=== PATIENT | male | born 1990 | race Hispanic/Latino ===

== ENCOUNTER 2023-01-12 05:14 | Emergency (ER) | payer BC ==
[~2023-01-12] VITALS: Ht 172.7 cm; Wt 101.2 kg
[2023-01-12] MEDS ORDERED: NASACORT16.9 ML (06:07)
[2023-01-12 06:42] VITALS: BP 130/85
== END 2023-01-12 06:42 | disposition home or self-care (01) ==
LOC: FSED 05:37 → EDBD 05:37 → FSED 06:42
DX: U07.1 COVID-19 (principal); G62.9 Polyneuropathy, unspecified; J30.9 Allergic rhinitis, unspecified; F41.8 Other specified anxiety disorders
CPT/HCPCS: 80053; 82553; 84484; 85025; 93005; 99283

== ENCOUNTER 2024-08-31 21:46 | Emergency (ER) | payer SELFPAY ==
[~2024-08-31] VITALS: Ht 172.7 cm; Wt 99.8 kg
[~2024-08-31 21:46] MED LIST: NASACORT16.9 ML
[2024-08-31 21:57] VITALS: PULSE 80; RESP 18; TEMP 98
[2024-08-31 23:37] VITALS: BP 135/84; PULSE 76; RESP 18; TEMP 98.1; O2SAT 98
== END 2024-08-31 23:30 | disposition home or self-care (01) ==
LOC: FSED 22:14
DX: M79.671 Pain in right foot (principal); K21.9 Gastro-esophageal reflux disease without esophagitis
CPT/HCPCS: 99283